=== PATIENT | male | born 1970 ===

== ENCOUNTER → 2018-10-11 21:27 | Outpatient (REF) | payer OTHER, SELFPAY ==
[2018-10-11 21:56] LABS: Add Manual Diff / Slide Review NO; Eosinophils Percent Auto 2.7 % (2-4); Hematocrit 45.8 % (41-53); Hemoglobin 15.4 g/dL (13.5-17.5); Lymphocytes Percent Auto 30.8 % (25-40); Mean Corpuscular HGB Conc 33.5 % (30-36); Mean Corpuscular Hemoglobin 29.1 PG (26-34); Mean Corpuscular Volume 86.9 fL (80-100); Neutrophils Absolute Auto 4400 /uL (3000-5900); Neutrophils Percent Auto 59.5 % (50-75); Platelet Count 260 X10^3/uL (150-400); Red Blood Cell Count 5.27 X10^6/uL (4.5-5.9); White Blood Cell Count 7.5 X10^3/uL (4.5-11.0)
[2018-10-11 21:59] LABS: Alanine Aminotransferase 45 IU/L (21-72); Albumin 4.7 g/dL (3.5-5.0); Albumin Globulin Ratio 1.4 (1.0-2.8); Alkaline Phosphatase 66 U/L (38-126); Aspartate Aminotransferase 30 IU/L (17-59); BUN Creatinine Ratio 21.4 (6-22); Bilirubin Total 0.6 mg/dL (0.2-1.3); Blood Urea Nitrogen 15 mg/dL (9-20); Calcium 10.1 mg/dL (8.4-10.2); Carbon Dioxide 27 mmol/L (22-32); Chloride 100 mmol/L (98-107); Cholesterol 200 mg/dL (140-199); Estimated Glomerular Filt Rate > 60.0 mL/min (>60); Globulin 3.3 g/dL (1.7-4.1); Glucose 104 mg/dL (70-100); HDL Cholesterol 40 mg/dL (40-60); HEMOLYSIS < 15 (0-50); LDL Cholesterol Calculated 114 mg/dL (<100); Potassium 4.2 mmol/L (3.4-5.1); Sodium 140 mmol/L (137-145); Triglycerides 231 mg/dL (35-150)
[2018-10-12 01:28] LABS: Free T3, Triiodothyronine Free 4.11 pg/mL (2.77-5.27); Free T4, Direct Thyroxine 1.21 ng/dL (0.78-2.19)
[2018-10-12 01:41] LABS: Thyroid Stimulating Hormone 1.48 uIU/mL (0.47-4.68)
[2018-10-13 13:49] LABS: Insulin Level Total 5.3 uIU/mL (2.0-19.6)
[2018-10-13 17:06] LABS: C Peptide 1.81 ng/mL (0.80-3.85)
[2018-10-14 13:56] LABS: Homocysteine 7.7 umol/L (< 11.4)
[2018-10-14 14:13] LABS: C.albicans IgA 0.5; C.albicans IgG 0.5; C.albicans IgM 0.5 (<1.0)
== END ==
LOC: LAB 21:27
PROVIDERS: Visit Provider Acupuncturist
DX: E16.2 Hypoglycemia, unspecified (principal); R53.83 Other fatigue; Z82.49 Family history of ischemic heart disease and other diseases of the circulatory system; K59.00 Constipation, unspecified
CPT/HCPCS: 80053; 80061; 83090; 83525; 84439; 84443; 84481; 84681; 85025; 86628